=== PATIENT | male | born 1950 | race Caucasian/White ===

== ENCOUNTER → 2023-08-05 07:49 | Outpatient (REF) | payer MEDICARE, OTHER, SELFPAY ==
[2023-08-05 12:43] LABS: PSA, Total - Diagnostic 0.19 ng/ml (0.0-4.0)
== END ==
LOC: REG 07:49
PROVIDERS: ATTENDING PHYSICIAN Internal Medicine Medical Oncology; FAMILY PHYSICIAN Internal Medicine
DX: C61 Malignant neoplasm of prostate (principal); R97.21 Rising PSA following treatment for malignant neoplasm of prostate
CPT/HCPCS: 36415; 84153

== ENCOUNTER → 2023-09-18 12:56 | Outpatient (REF) | payer MEDICARE, OTHER, SELFPAY | LOC: RAD 12:56 | PROVIDERS: ATTENDING PHYSICIAN Internal Medicine Hematology & Oncology; FAMILY PHYSICIAN Internal Medicine | DX: R59.0 Localized enlarged lymph nodes (principal); C61 Malignant neoplasm of prostate | CPT/HCPCS: 70492; Q9967 ==

== ENCOUNTER → 2023-10-03 09:50 | Outpatient (REF) | payer MEDICARE, OTHER, SELFPAY | LOC: WDC 09:50 | PROVIDERS: ATTENDING PHYSICIAN Internal Medicine Hematology & Oncology; FAMILY PHYSICIAN Internal Medicine | DX: R59.0 Localized enlarged lymph nodes (principal); N63.31 Unspecified lump in axillary tail of the right breast | CPT/HCPCS: 76642; 77062; 77066 ==

== ENCOUNTER → 2024-02-22 07:35 | Outpatient (REF) | payer MEDICARE, OTHER, SELFPAY | LOC: RCS 07:35 | PROVIDERS: ATTENDING PHYSICIAN Internal Medicine | DX: Z00.8 Encounter for other general examination (principal); I48.4 Atypical atrial flutter; I10 Essential (primary) hypertension | CPT/HCPCS: 93306 ==

== ENCOUNTER → 2024-04-14 09:01 | Outpatient (REF) | payer MEDICARE, OTHER, SELFPAY | LOC: RAD 09:01 | PROVIDERS: ATTENDING PHYSICIAN Internal Medicine; FAMILY PHYSICIAN Internal Medicine | DX: M54.2 Cervicalgia (principal) | CPT/HCPCS: 72050 ==

== ENCOUNTER 2024-05-01 06:20 | Day surgery (SDC) | payer MEDICARE, OTHER, SELFPAY ==
[2024-05-01] VITALS (9 sets, daily range): BP systolic 114–158; BP diastolic 71–104; BMI 31.7
[2024-05-01] MEDS: NORMOSOL-R/PLASMALYTE-A 1000 IV (08:32)
[2024-05-01] MEDS: Pyridium 200 MG PO (11:31)
== END 2024-05-01 12:51 | disposition home or self-care (01) ==
LOC: SDS 06:20
PROVIDERS: ATTENDING PHYSICIAN Specialist
DX: N30.40 Irradiation cystitis without hematuria (principal); Y84.2 Radiological procedure and radiotherapy as the cause of abnormal reaction of the patient, or of later complication, without mention of misadventure at the time of the procedure
CPT/HCPCS: 52234

== ENCOUNTER 2024-06-02 05:58 | Inpatient (IN) | payer MEDICARE, OTHER, SELFPAY ==
[2024-05-07 09:56] VITALS: BMI 34.2
[2024-05-07 10:19] LABS: % Eosinophils 2.9 % (0-6); % Immature Granulocytes 0.2 % (0-0.5); % Lymphocytes 17.5 % (20.5-51.1); % Monocytes 8.2 % (1.7-9.3); % Neutrophils 70.2 % (42.2-75.2); Absolute Basophils 0.1 10^3/uL (0-0.2); Absolute Eosinophils 0.2 10^3/uL (0-0.7); Absolute Lymphocytes 1.4 10^3/uL (1.2-3.4); Absolute Monocytes 0.7 10^3/uL (0.1-0.6); Absolute Neutrophils 5.6 10^3/uL (1.4-6.5); Hemoglobin 13.9 g/dL (13.0-18.0); Mean Corp Hgb Conc. 32.3 g/dL (33.0-37.0); Mean Corpuscular Hgb 28.5 pg (27.0-31.0); Mean Corpuscular Volume 88.3 fL (80.0-94.0); Nucleated Red Blood Cells % 0 % (-); Platelet Count 220 10^3/uL (130-400); Red Blood Cell Count 4.87 10^6/uL (4.70-6.10); Red Cell Dist. Width 13.9 % (11.5-14.5)
[2024-05-07 10:30] LABS: INR 0.98; PT 13.4 Sec (11.4-14.6)
[2024-05-07 10:40] LABS: ALT (SGPT) 11 U/L (0-50); AST (SGOT) 22 U/L (17-59); Alkaline Phosphatase 71 U/L (38-126); Blood Urea Nitrogen 23 mg/dl (9-20); Calcium 9.2 mg/dl (8.4-10.2); Carbon Dioxide 30 mmol/L (22-30); Estimated Creatinine Clearance 83 ml/min; Glucose 100 mg/dl (70-99); Sodium 135 mmol/L (135-145); Total Bilirubin 0.9 mg/dl (0.2-1.3); Total Protein 6.5 g/dl (6.3-8.2); eGFR > 60.00
[2024-05-07 10:57] LABS: Albumin 4.3 g/dl (3.5-5.0); Chloride 100 mmol/L (98-107); Potassium 5.1 mmol/L (3.5-5.1)
--- NOTE | 2024-05-12 07:46 | W.PN.UPDATE ---
Update Note
Progress Note Update
Reviewed Mr. Vargas with the heart team in the SDM meeting. Patient will start OAC post watchman. Discussed a device. Will confirm with intraop imaging. He will start Eliquis 5mg x3 months until follow up RAFFI.
[2024-06-02] VITALS (13 sets, daily range): BP systolic 85–152; BP diastolic 56–88
--- NOTE | 2024-06-02 07:08 | W.PN.UPDATE ---
Update Note
Progress Note Update
Reviewed Mr. Vargas witht the heart team in the preWatchman SDM and discussed a 31mm device. Will confirm with intraop imaging. Will initiate 5 mg Eliquis BID x 3 months until follow up RAFFI.
[2024-06-02 09:17] LABS: ACT-LR - POC 364 Seconds (116-155)
[2024-06-02 09:52] LABS: ACT-LR - POC 332 Seconds (116-155)
[2024-06-02 10:07] LABS: ACT-LR - POC 372 Seconds (116-155)
--- NOTE | 2024-06-02 10:17 | ITS.CL.ABL ---
Osd Clerk - Ablation
Ablation
Procedure Report:
AFIB ablation / Watchman implantation:
Mr. Vargas is a very pleasant 74 yr old gentleman, a patient of Dr. Bettencourt, with symptomatic persistent AF, with CHADSVascc score of 2 with life threatening bleeding with prostate CA is restarted on Eliquis and is recommended a placement of
Watchman with atrial fibrillation ablation.
Date of the Procedure:
06/02/2024
Indications:
Persistent atrial fibrillation, recurrent bleeding with high CHADSVasc score
Pre-Operative Diagnosis:
Persistent atrial fibrillation, recurrent bleeding with high CHADSVasc score
Post-Operative Diagnosis:
Persistent atrial fibrillation, recurrent bleeding with high CHADSVasc score
Procedure Performed:
Atrial fibrillation ablation with Pulsed-Field approach for pulmonary vein isolation
Posterior wall isolation
Left atrial appendage occlusion with Watchman implantation (31 mm Watchman FLX Pro left atrial appendage closure device)
Performing Physician:
Ablation and TSSP: Neetu Eller MD
Implant: Joshua Israel MD PHD
RAFFI: Tae Lyon M.D.
Assistants:
EP staff
Anesthesia:
See anesthesia records
Detailed Description of the Procedure:
Written informed consent was obtained from the patient after a full explanation of the risks and benefits of the procedure including the risks of sedation and anesthesia.
The patient was brought to the electrophysiology laboratory in stable condition in fasting state. Continuous electrocardiographic and hemodynamic monitoring was initiated.
The initial rhythm was atrial fibrillation.
The procedure site was meticulously prepared with surgical scrub and allowed to dry with no pooling. Sterile draping was applied to cover the procedure site. The image intensifier was draped with sterile bag and positioned over the patient. After
infusion of local anesthetic, vascular access was obtained under ultrasound guidance and sheaths were placed over guide wire as detailed below.
Sheath and Catheter Placement:
The following catheters / sheaths were placed
Patient spontaneously developed NSVT and had a long pause while placing the catheters without any catheter in RV. Decision was made to place a pacing wire in the RV chamber for pacing if needed.
Sheaths:
��������� 17Fr steerable sheath (Faradrive�, [place] [employer]) in right femoral that later swapped to Watchman delivery sheath
��������� 9Fr in right femoral vein
Catheters:
��������� ANGE HD Grid mapping catheter � at locations of RA, LA
��������� Farawave� PFA catheter
��������� ICE catheter �AccuNAv - at locations of RA, SVC, and RV.
��������� Watchman catheter
��������� Decapolar catheter in CS and RV
Heparin bolus given and drip started.
Intracardiac ECHO:
An 8-[place] AcuNav intracardiac ECHO (ICE) probe was advanced through the 9-Ken[place] sheath in the right femoral vein into the right atrium under fluoroscopic and ICE ultrasound image guidance and a baseline ECHO study was performed. The left atrial
size was normal. There was moderate tricuspid regurgitation.
There was borderline normal left ventricular systolic functions. There is trace pericardial effusion. All the four veins were identified and has flow identified. There was sluggish flow noted in the SHANNAN. There was no SHANNAN clot noted.
During the procedure, ICE was used for monitoring of complications, guidance of trans-septal puncture, monitor the catheter position and tracking ablation lesions. No change in the pericardial space noted throughout the procedure.
Trans-septal Puncture:
Heparin was initiated and infused to maintain appropriate ACT. A pigtail guidewire was advanced through the 8-[place] sheath in the right femoral vein into the superior vena cava under fluoroscopic and ICE guidance. The 9-Kenyan sheath was exchanged
for a Faradrive sheath which was advanced into the superior vena cava. A trans-septal RF pigtail via [employer]adrive connect system was utilized to perform the trans-septal puncture. The apparatus was withdrawn until it was in contact with the fossa
ovalis. The position was adjusted based on fluoroscopy and ultrasound images from ICE. Under fluoroscopic, hemodynamic and ICE ultrasound guidance, left atrium was cannulated by applying RF energy. Once atrial septum was cannulated, the pigtail wire
was advanced through the needle into the left atrium. The guide wire was advanced into the left superior pulmonary vein. Both the sheath and the dilator was advanced into the left atrium. The dilator with the needle was withdrawn. Blood was
aspirated from the Faradrive sheath and arterial blood confirmed. The sheath was flushed. Saline injection noted into the left atrium on ICE. The mapping catheter was advanced in the sheath into the left pulmonary vein. Left atrial pressure was
measured.
3D Electroanatomic Mapping:
Using the HD Grid catheter advanced through sheath into the left atrium, an electroanatomic map (EAM) of the left atrium was created using [employer] ANGE mapping system. The map was used for localization of catheter position and tacking of ablation
lesions.
The EAM of the left atrium showed 4 pulmonary veins with all 4 veins electrically connected to the body the LA. It showed scattered extensive scar on the posterior and anterior wall of the LA. The LA was dilated in size.
Following the EAM, preparation were made for ablation.
Ablation:
Ablation # 1: Pulmonary vein Isolation:
Glycopyrrolate 0.2 mg was given prior to the placement of ablation. Using [employer] pulsed wave ablation system, pulmonary vein isolation was achieved. First the ablation catheter was placed in the LSPV and ostial ablation lesions were performed in a
counter clock garvin approach all around the PV ostium circumferentially. Then the catheter was placed on the antral location and multiple ablation lesions were placed circumferentially on the antrum of the vein.
In the similar fashion, the LIPV were isolated.
Then the catheter was moved to right sided veins. The ostial and antral ablations were placed as noted above.
Ablation #2: Posterior wall isolation:
Using the pulsed field ablation catheter, the catheter was placed between left superior pulmonary vein and right severe pulmonary vein with series of overlapping ablation lesions placed.
Using the pulsed field ablation catheter, the catheter was placed on the posterior wall and moved around the posterior wall to have adequate contact and ablations were placed isolating the posterior wall.
Cardioversion:
A 200 J was delivered and sinus rhythm was achieved without any pause or need for pacing.
EPS and Confirmation of the PVI and bidirectional block:
Following achievement of entrance block at the pulmonary veins, pacing from the HD catheter in each of the four veins at 10 milliamps for 2 milliseconds showed entrance and exit block. All PVI were rechecked at the end of the case and remained
isolated. Entrance and exit block were demonstrated in all veins.
Post ablation Electroanatomic mapping:
Once ablation was completed, the EAM of the LA was done again in sinus rhythm with excellent demarcation of LA myocardium and isolated antral tissue. There was no significant scarring noted in the LA.
The SHANNAN had healthy signals and was not isolated.
Watchman implantation:
Using the trans-septal RF pigtail, the Faradrive sheath was swapped with Watchman delivery sheath over the RF pigtail. A curved pig tail was advanced over the guide wire into the left atrium and the wire was removed.
Left atrial appendage atriography:
The pigtail was advanced into the SHANNAN and was confirmed on fluoroscopy and RAFFI. The contrast was injected and the SHANNAN shape was recorded in LOUIE /Caudal view (21/25 degrees then again 1/25 degrees). The size of the SHANNAN was again checked and confirmed
reviewing the RAFFI and the fluoroscopy along with previously obtained CT scan images.
Watchman Deployment:
The Watchman delivery sheath was advanced into the SHANNAN over the pigtail till the right marker was at the location of the orifice line marked on the screen. The pigtail was removed and the Watchman delivery system was advanced through the sheath into
the SHANNAN till it was aligned with the outer sheath marker inside the SHANNAN. The watchman sheath was clicked with the outer sheath. Once acceptable location achieved, the outer sheath was pulled back keeping the device steady at the SHANNAN location till a
ball of the device was formed under fluoroscopic guidance. The whole system was advanced further into the SHANNAN till adequate depth is achieved into the SHANNAN. The SHANNAN occluder was deployed and expanded adequately anchoring to the SHANNAN. The device was
kept anchored with stable pressure to that location for 10 seconds.
The RAFFI image confirmed adequate expansion. The tug test was done that showed the device is anchored well and is not able to come out. The compression was 24%, 18% and 25% on the three sides. There was no significant leak noted on the Doppler via
RAFFI.
The device was deployed by unscrewing the Watchman device and releasing from the connecting wire. The wire was pulled back into the sheath and the sheath was pulled out of the LA.
Implanted device:
WATCHMAN FLX Pro � 31mm
Procedure End
RAFFI study was done again that showed no epicardial accumulation that was unchanged from earlier. A repeated images showed no change in the pericardial space. No complications noted.
Following the completion of the deployment, catheters were removed. Protamine 40 mg was given at the end of the procedure and ACT was checked repeatedly. The sheath was removed and hemostasis achieved with Figure of 8 and manual compression after
acceptable ACT is achieved.
Left atrial Pressure:
Mean LA pressure was 17mmHg (AF)
Mean LA pressure was 14mmHg (sinus)
Estimated Blood loss:
<10 cc
Specimens Removed:
None.
Implants / Devices:
None
Urine output:
None
Packs / Drains/ Tubes:
None
Instrument / Sponge Count Correct:
Yes
Complications of the Procedure:
None
Condition of Patient at Time of Transfer:
Hemodynamically stable with no neurological or vascular compromise.
Summary:
Successful atrial fibrillation ablation with Pulsed Field approach for pulmonary vein isolation and posterior wall isolation.
Successful implantation of the left atrial occlusion device (WATCHMAN FLX Pro� 31mm)
Post procedure Plan for anticoagulation:
Continue Eliquis for 3 months. (Preferably 5mg BID if tolerated but if bleeding noted then can be changed to 2.5 mg BID)
Based on 3 months RAFFI, will plan to switch Eliquis to ASA 81 mg indefinitely.
Figures from the Procedure:
Figure 1: The electroanatomic mapping (EAM) of the left atrium with bipolar voltage (purple indicates normal electrical activity with tomas as no myocardial muscle electric activity indicating a line of block or scar.
--- NOTE | 2024-06-02 15:13 | W.PN.UPDATE ---
Update Note
Progress Note Update
Pt seen post PFA + watchman device implant. Right groin site without ht/bleeding, oob ambulating, urinating without difficulty. Post EKG NSR w/1st deg AVB, no acute changes. Resume eliquis tonight at usual time. Will remain on eliquis until followup
RAFFI scheduled on 09/16. Followup at [facility] as scheduled. Home today if groin site/tele remain stable.
--- NOTE | 2024-06-02 20:30 | ITS.CL.PN ---
Laundry Helper - Procedure Note
Procedure
Procedure Note:
WATCHMAN LEFT ATRIAL APPENDAGE OCCLUSION REPORT
Date of Procedure: 06/02/2024
Referring: Dr. Shady Aguirre MD
Indication: Atrial fibrillation with high bleeding risk and high stroke risk
Operators: Joshua Israel MD, PhD (interventional cardiology); Dr. Neetu Eller MD (electrophysiology); Dr. Tae Lyon MD (cardiac imaging)
Anesthesia: general anesthesia provided by the anesthesia staff
PROCEDURE: left atrial appendage occlusion with a 31 mm Watchman FLX
ACCESS:
1. 17F right common femoral vein (closure: figure of eight stitch)
2. 9F right common femoral vein (closure: figure of eight stitch)
HEMODYNAMIC DATA
LA 12 mmHg
PROCEDURE NARRATIVE:
The patient was intubated and sedated by anesthesiology and then prepped and draped in standard sterile fashion. A RAFFI probe was placed by cardiology and imaging performed demonstrating no left atrial appendage thrombus and no pericardial effusion.
Under ultrasound guidance, the right femoral vein was accessed by Dr. Neetu Eller with 8F and 9F sheaths placed. PVI was then performed by Dr. Eller. Please see his separate note for details. At the conclusion of the PVI, we proceeded with
Watchman implantation. The 17F sterrable sheath used for ablation was exchanged for the 14F Watchman double curve sheath.
A 5F pigtail catheter was advanced through the Watchman sheath and placed in the left atrial appendage, and an appendage gram was performed demonstrating anatomy suitable for a 31 mm Watchman FLX device. The device was prepped on the back table, the
pigtail catheter removed, and the device delivered via the sheath to the left atrial appendage by Dr. Jesus Alberto Israel. The device was deployed slowly under continuous fluoroscopic and RAFFI visualization. After deployment, RAFFI imaging was performed to
assess PASS criteria. The device demonstrated excellent positioning, anchor stability on tug test, appropriate sizing with 18-25% compression, and appropriate seal with no leak at 0, 45, 90, or 135 degrees. Given PASS criteria were met, the device
was then released.
The delivery system retracted back into the sheath and removed from the body. The sheath was retracted into the right atrium with RAFFI demonstrating no significant R-L shunt or pericardial effusion. The ICE catheter was removed from the body. The
sheaths were removed and the venotomy closed with [id number] knot. Protamine 40 mg was given. The patient was extubated and tolerated the procedure well.
CONCLUSIONS
1. successful deployment of a 31 mm Watchman FLX device under fluoroscopic and RAFFI guidance
RECOMMENDATIONS:
1. anticoagulation with Eliquis 5 mg BID for 3 months
2. repeat RAFFI in 3 months
Copy to: Dr. Shady Aguirre MD (speech pathology teacher); Dr. Shaq Morris MD (urology); Dr. Surjit Drew MD (PCP)
Signed: Joshua Israel MD, PhD
[2024-06-03 13:20] LABS: ACT-LR - POC > 397 Seconds (116-155)
== END 2024-06-02 15:20 | disposition home or self-care (01) | DRG 317 ==
LOC: CATH-IN 05:58
PROVIDERS: Student in an Organized Health Care Education/Training Program; ADMITTING PHYSICIAN Internal Medicine Cardiovascular Disease; FAMILY PHYSICIAN Internal Medicine
PROC: 02L73DK Occlusion of Left Atrial Appendage with Intraluminal Device, Percutaneous Approach (ICD-10-PCS; 2024-06-02)
PROC: 02583ZZ Destruction of Conduction Mechanism, Percutaneous Approach (ICD-10-PCS; 2024-06-02)
PROC: B24BZZ4 Ultrasonography of Heart with Aorta, Transesophageal (ICD-10-PCS; 2024-06-02)
DX: I48.19 Other persistent atrial fibrillation (principal); Z00.6 Encounter for examination for normal comparison and control in clinical research program; N30.41 Irradiation cystitis with hematuria; I10 Essential (primary) hypertension; E78.5 Hyperlipidemia, unspecified; Y84.2 Radiological procedure and radiotherapy as the cause of abnormal reaction of the patient, or of later complication, without mention of misadventure at the time of the procedure; J45.40 Moderate persistent asthma, uncomplicated; K21.9 Gastro-esophageal reflux disease without esophagitis; F41.9 Anxiety disorder, unspecified; F32.A Depression, unspecified; R41.89 Other symptoms and signs involving cognitive functions and awareness; E66.9 Obesity, unspecified; I34.0 Nonrheumatic mitral (valve) insufficiency; K58.0 Irritable bowel syndrome with diarrhea; Z87.891 Personal history of nicotine dependence; Z68.34 Body mass index [BMI] 34.0-34.9, adult; Z79.01 Long term (current) use of anticoagulants; Z85.46 Personal history of malignant neoplasm of prostate; Z86.19 Personal history of other infectious and parasitic diseases
CPT/HCPCS: 75572; 80053; 85025; 85347; 85610; 86850; 86900; 86901; 92920; 93005; 93355; 93656; 93657; C1732; C1733; C1759; C1766; C1892; C1894; Q9967

== ENCOUNTER 2024-09-16 08:46 | Day surgery (SDC) | payer MEDICARE, OTHER, SELFPAY | END 2024-09-16 12:29 | disposition home or self-care (01) | LOC: CATH 08:46 | PROVIDERS: ATTENDING PHYSICIAN Internal Medicine; FAMILY PHYSICIAN Internal Medicine | DX: Z45.09 Encounter for adjustment and management of other cardiac device (principal); I08.1 Rheumatic disorders of both mitral and tricuspid valves; I48.19 Other persistent atrial fibrillation; I25.10 Atherosclerotic heart disease of native coronary artery without angina pectoris; I10 Essential (primary) hypertension; E78.00 Pure hypercholesterolemia, unspecified; Z85.46 Personal history of malignant neoplasm of prostate; Z87.891 Personal history of nicotine dependence; Z79.01 Long term (current) use of anticoagulants | CPT/HCPCS: 93312; 93320; 93325 ==